=== PATIENT | male | born 1960 | race Caucasian/White ===

== ENCOUNTER 2016-07-06 18:31 | Inpatient (IN) | payer MEDICARE, OTHER ==
[~2016-07-06] VITALS: Ht 182.9 cm; Wt 101.9 kg
[~2016-07-06 18:31] MED LIST: AMIT10TA PO; AMLO5TAB2 PO; AMLO5TAB4 PO; ASPI-496 PO; ATOR20TA PO; CARV-39 PO; CINA30TA PO; CLON0.1T PO; GABA300C10 PO; HYDR-3342 PO; LISI-167 PO; LISI-170 PO; OXYC-229 PO; SEVE800T8 PO; SPIR25TA3 PO; TEMA30CA PO
[2016-07-06] MEDS ORDERED: SODIUM CHLORIDE FLUSH 10ML SYR IVF ONE (19:00)
[2016-07-06 19:43] LABS: BLOOD UREA NITROGEN 15 mg/dL (7-18)
[2016-07-06 19:46] LABS: ASPARTATE AMINO TRANSFERASE 12 U/L (15-37)
[2016-07-06 20:00] LABS: IS PT STATUS REG ER OR PRE ER? YES
[2016-07-06 23:28] VITALS: BP 148/71
[2016-07-07] MEDS ORDERED: HYDR-3342 PO (00:02)
[2016-07-07] MEDS ORDERED: LISI-420 PO (00:02)
[2016-07-07] MEDS ORDERED: GUAIFENESIN/DM 200-20MG, 10ML UDC PO PRN (00:30)
[2016-07-07] MEDS ORDERED: TEMAZEPAM 30 MG CAPSULE PO SCH (00:30)
[2016-07-07] MEDS ORDERED: DOCUSATE 100 MG CAPSULE PO PRN (00:30)
[2016-07-07] MEDS: OXYcodone/APAP 10/325MG TABLET PO PRN ×3 (01:05→14:28)
[2016-07-07 02:01] LABS: RAPID INFLUENZA A Negative (Negative); RAPID INFLUENZA B Negative (Negative)
[2016-07-07 03:33] VITALS: BP 149/80
[2016-07-07 07:05] VITALS: BP 163/86
[2016-07-07 08:09] VITALS: BP 160/80
[2016-07-07] MEDS: SEVELAMER 800MG TABLET PO SCH ×2 (08:13→11:32)
[2016-07-07] MEDS ORDERED: CINACALCET 30 MG TABLET PO SCH (09:00)
[2016-07-07] MEDS ORDERED: GABAPENTIN 300 MG CAPSULE PO SCH (09:00)
[2016-07-07] MEDS ORDERED: CARVEDILOL 25 MG TABLET PO SCH (09:00)
[2016-07-07] MEDS ORDERED: AMLODIPINE 5 MG TABLET PO SCH (09:00)
[2016-07-07 11:40] LABS: IS PT STATUS REG ER OR PRE ER? NO
[2016-07-07 12:53] VITALS: BP 150/81
[2016-07-07] MEDS ORDERED: ATORVASTATIN 20 MG TABLET PO SCH (21:00)
[2016-07-07] MEDS ORDERED: AMITRIPTYLINE 10 MG TABLET PO SCH (21:00)
== END 2016-07-07 16:40 | disposition home or self-care (01) | DRG 314 ==
LOC: ED 20:53 → EDIP 21:30 → 5SO 23:11
PROVIDERS: ADMIT Internal Medicine; ATTEND Internal Medicine
DX: I40.0 Infective myocarditis (principal); N18.6 End stage renal disease; I50.23 Acute on chronic systolic (congestive) heart failure; E87.1 Hypo-osmolality and hyponatremia; I13.2 Hypertensive heart and chronic kidney disease with heart failure and with stage 5 chronic kidney disease, or end stage renal disease; B34.9 Viral infection, unspecified; D64.9 Anemia, unspecified; E11.22 Type 2 diabetes mellitus with diabetic chronic kidney disease; E78.5 Hyperlipidemia, unspecified; Z85.528 Personal history of other malignant neoplasm of kidney; Z99.2 Dependence on renal dialysis; Z90.5 Acquired absence of kidney; Z90.89 Acquired absence of other organs
CPT/HCPCS: 36415; 71010; 80053; 83605; 83690; 83735; 83880; 84100; 84436; 84439; 84443; 84484; 85025; 87040; 87400; 93005; 96374

== ENCOUNTER 2016-08-05 00:58 | Inpatient (IN) | payer MEDICARE, OTHER ==
[~2016-08-05] VITALS: Ht 182.9 cm; Wt 104.7 kg
[2016-08-05] VITALS (7 sets, daily range): BP systolic 133–184; BP diastolic 75–98
[~2016-08-05 00:58] MED LIST changes: +LISI-420 PO
[2016-08-05] MEDS ORDERED: SODIUM CHLORIDE FLUSH 10ML SYR IVF ONE (01:30)
[2016-08-05 01:46] LABS: ASPARTATE AMINO TRANSFERASE 11 U/L (15-37); BLOOD UREA NITROGEN 56 mg/dL (7-18)
[2016-08-05 01:50] LABS: IS PT STATUS REG ER OR PRE ER? YES
[2016-08-05] MEDS ORDERED: hydrALAzine 20 MG/ML, 1ML IVPush PRN (03:00)
[2016-08-05] MEDS ORDERED: ONDANSETRON 2MG/ML, 2ML IVPush PRN (03:00)
[2016-08-05] MEDS ORDERED: BISACODYL 10 MG SUPP PR PRN (03:00)
[2016-08-05] MEDS ORDERED: DOCUSATE 100 MG CAPSULE PO PRN (03:00)
[2016-08-05] MEDS ORDERED: ENALAPRILAT 1.25 MG/ML, 2ML IVPush PRN (03:00)
[2016-08-05] MEDS ORDERED: ACETAMINOPHEN 325 MG TABLET PO PRN (03:00)
[2016-08-05] MEDS ORDERED: POLYETHYLENE GLYCOL 17 GM PACKET PO PRN (03:00)
[2016-08-05] MEDS ORDERED: OXYcodone IR 5MG TABLET PO PRN (03:00)
[2016-08-05] MEDS ORDERED: hydrALAzine 20 MG/ML, 1ML ONE (03:21)
[2016-08-05] MEDS ORDERED: OXYcodone/APAP 10/325MG TABLET PO PRN (03:30)
[2016-08-05] MEDS: morphine SULFATE 10 MG/ML, 1ML IVPush PRN ×4 (04:21→18:15)
[2016-08-05] MEDS: DOXYCYCLINE 100MG TABLET PO SCH ×2 (04:22→18:03)
[2016-08-05] MEDS: HEPARIN 5,000 UNITS/ML, 1ML SQ SCH ×3 (04:23→18:04)
[2016-08-05] MEDS: ALBUTEROL/IPRATROPIUM 2.5MG/0.5MG, 3 ML NPPB SCH ×4 (07:00→18:35)
[2016-08-05] MEDS: SEVELAMER 800MG TABLET PO SCH ×3 (08:54→18:03)
[2016-08-05] MEDS: ASPIRIN 81 MG TABLET EC PO SCH (08:55)
[2016-08-05] MEDS: GABAPENTIN 300 MG CAPSULE PO SCH ×2 (08:56→21:42)
[2016-08-05] MEDS: CINACALCET 30 MG TABLET PO SCH (08:56)
[2016-08-05] MEDS: AMLODIPINE 5 MG TABLET PO SCH ×2 (08:56→21:42)
[2016-08-05] MEDS: CARVEDILOL 25 MG TABLET PO SCH ×2 (08:58→21:41)
[2016-08-05] MEDS ORDERED: TEMAZEPAM 30 MG CAPSULE PO SCH (21:00)
[2016-08-05] MEDS ORDERED: ATORVASTATIN 20 MG TABLET PO SCH (21:00)
[2016-08-05] MEDS ORDERED: AMITRIPTYLINE 10 MG TABLET PO SCH (21:00)
[2016-08-06 01:30] VITALS: BP 141/63
[2016-08-06] MEDS: DOXYCYCLINE 100MG TABLET PO SCH (03:03)
[2016-08-06] MEDS: HEPARIN 5,000 UNITS/ML, 1ML SQ SCH ×2 (03:03→11:00)
[2016-08-06 06:26] LABS: BLOOD UREA NITROGEN 47 mg/dL (7-18)
[2016-08-06 06:27] LABS: ASPARTATE AMINO TRANSFERASE < 3 U/L (15-37)
[2016-08-06 06:45] VITALS: BP 149/76
[2016-08-06] MEDS: ALBUTEROL/IPRATROPIUM 2.5MG/0.5MG, 3 ML NPPB SCH (07:00)
[2016-08-06 07:54] VITALS: BP 143/76
[2016-08-06] MEDS: CARVEDILOL 25 MG TABLET PO SCH (08:21)
[2016-08-06] MEDS: CINACALCET 30 MG TABLET PO SCH (08:21)
[2016-08-06] MEDS: ASPIRIN 81 MG TABLET EC PO SCH (08:21)
[2016-08-06] MEDS: SEVELAMER 800MG TABLET PO SCH ×2 (08:21→12:02)
[2016-08-06] MEDS: AMLODIPINE 5 MG TABLET PO SCH (08:21)
[2016-08-06] MEDS: GABAPENTIN 300 MG CAPSULE PO SCH (08:22)
[2016-08-06] MEDS: morphine SULFATE 10 MG/ML, 1ML IVPush PRN (09:14)
[2016-08-06] MEDS ORDERED: DOXY100T PO (11:15)
[2016-08-06] MEDS ORDERED: PRED10TA PO (11:15)
[2016-08-06] MEDS ORDERED: HYDR-3342 PO (11:15)
[2016-08-06] MEDS ORDERED: ALBU8.5H3 INH (11:33)
[2016-08-06 13:23] LABS: HEP B SURF. AB > 1000.0 mIU/mL (0.0-10.0)
[2016-08-07] MEDS ORDERED: ALBUTEROL/IPRATROPIUM 2.5MG/0.5MG, 3 ML NPPB SCH (06:00)
== END 2016-08-06 14:32 | disposition home or self-care (01) | DRG 291 ==
LOC: ED 02:38 → EDIP 02:56 → 4WST 03:35 → DCLOUNGE 08-06 13:35
PROVIDERS: ADMIT Internal Medicine; ATTEND Internal Medicine
PROC: 5A1D00Z (ICD-10-PCS; principal; 2016-08-05)
DX: I50.23 Acute on chronic systolic (congestive) heart failure (principal); J96.01 Acute respiratory failure with hypoxia; N18.6 End stage renal disease; I42.9 Cardiomyopathy, unspecified; I13.2 Hypertensive heart and chronic kidney disease with heart failure and with stage 5 chronic kidney disease, or end stage renal disease; J44.1 Chronic obstructive pulmonary disease with (acute) exacerbation; N25.81 Secondary hyperparathyroidism of renal origin; D53.9 Nutritional anemia, unspecified; D63.1 Anemia in chronic kidney disease; D72.829 Elevated white blood cell count, unspecified; E11.22 Type 2 diabetes mellitus with diabetic chronic kidney disease; G89.29 Other chronic pain; M54.9 Dorsalgia, unspecified; I25.10 Atherosclerotic heart disease of native coronary artery without angina pectoris; I34.0 Nonrheumatic mitral (valve) insufficiency; Z85.528 Personal history of other malignant neoplasm of kidney; Z90.5 Acquired absence of kidney; Z99.2 Dependence on renal dialysis; Z88.8 Allergy status to other drugs, medicaments and biological substances; J40 Bronchitis, not specified as acute or chronic
CPT/HCPCS: 36415; 71010; 80053; 80061; 81001; 82607; 82746; 82962; 83036; 83735; 83880; 84439; 84443; 84484; 85025; 86704; 86706; 87040; 87070; 87086; 87147; 87205; 87340; 93005; 93306; 94640; 96374; J1644; J7620; J0360; J2270; J7512